=== PATIENT | female | born 2000 | race Two or more races ===

== ENCOUNTER 2024-12-27 10:22 | Emergency (ER) | payer OTHER ==
[~2024-12-27] VITALS: Ht 170.2 cm; Wt 74.8 kg
[2024-12-27 12:21] LABS: BASO % 0.5 % (0.1-1.2); EOS # 0.01 (0.04-0.54); EOS % 0.2 % (0.7-7.0); LYMPH # 0.65 (1.18-3.74); LYMPH % 10.9 % (19.3-53.1); MEAN PLATELET VOLUME 10.90 fl (9.4-12.4); MONO # 0.51 (0.24-0.82); MONO % 8.5 % (4.7-12.5); NEUT # 4.74 (1.56-6.13); NEUT % 79.2 % (34.0-71.1); RED CELL DISTRIBUTION WIDTH 13.5 % (11.6-14.4)
[2024-12-27 12:43] LABS: ALT/SGPT 40.0 U/L (12-78); AST/SGOT 28.0 U/L (15-37); BILIRUBIN TOTAL 0.48 mg/dL (0.3-1.2); BUN CREA RATIO 12.0 (7.0-25.0); CREATININE SERUM 0.5 mg/dL (0.55-1.02); GFR 154.28; GLOBULINA 3.5 G/DL (2.4-3.5); GLUCOSE FASTING 108.0 mg/dL (65-100); OSMOLALITY SERUM 274.0 MOSM/KG (275-295)
[2024-12-27 12:52] LABS: URINE APPEARANCE Clear; URINE BILIRRUBIN Negative (NEGATIVE); URINE BLOOD Negative; URINE COLOR Yellow; URINE GLUCOSE Negative (NEGATIVE); URINE KETONE Negative (NEGATIVE); URINE LEUKOCYTE Trace; URINE NITRATE Negative; URINE PROTEIN Negative (NEGATIVE); URINE UROBILINOGEN 0.2 E.U./dl
[2024-12-27 12:55] LABS: URINE BACTERIA 2395.0 uL (0.0-1933); URINE EPITHELIAL CELLS 67.0 uL (0.0-38.8); URINE RBC 42.9 uL (0.0-20.8); URINE WBC 36.4 uL (0.0-23.2)
[2024-12-27 13:07] LABS: URINE CAST 0.29 uL (0.0-1.40)
[2024-12-27 13:08] LABS: COVID-19 AG POSITIVE (NEGATIVE)
[2024-12-27] MEDS ORDERED: ACETAMINOPHEN 500 MG GEL..CAP PO ONE ×2 (13:45)
[2024-12-27] MEDS ORDERED: 0.9 % SODIUM CHLORIDE 500 ML IV ONE (14:15)
== END 2024-12-27 15:41 ==
LOC: ER 10:22
PROVIDERS: General Practice
DX: O98.512 Other viral diseases complicating pregnancy, second trimester (principal); U07.1 COVID-19; O23.42 Unspecified infection of urinary tract in pregnancy, second trimester; N39.0 Urinary tract infection, site not specified; Z3A.22 22 weeks gestation of pregnancy; Z88.0 Allergy status to penicillin; Z88.8 Allergy status to other drugs, medicaments and biological substances

== ENCOUNTER 2025-05-01 13:00 | Inpatient (IN) | payer OTHER ==
[~2025-05-01] VITALS: Ht 170.2 cm; Wt 3.6 kg
[2025-05-05 01:56] VITALS: BP 136/78
[2025-05-05] MEDS ORDERED: RINGERS SOLUTION,LACTATED 1,000 ML IV SCH (02:15)
[2025-05-05] MEDS ORDERED: CLINDAMYCIN PHOSPHATE 150 MG/ML (900mg) IV SCH (02:15)
[2025-05-05] MEDS ORDERED: OXYTOCIN 10 UNITS/ML VIAL ONE (02:17)
[2025-05-05] MEDS ORDERED: ERYTHROMYCIN BASE OPHT 1GM EACH TUBE OP ONE (02:17)
[2025-05-05 02:31] LABS: BASO % 0.4 % (0.1-1.2); EOS # 0.07 (0.04-0.54); EOS % 0.6 % (0.7-7.0); LYMPH # 2.52 (1.18-3.74); LYMPH % 22.5 % (19.3-53.1); MEAN PLATELET VOLUME 12.00 fl (9.4-12.4); MONO # 0.58 (0.24-0.82); MONO % 5.2 % (4.7-12.5); NEUT # 7.96 (1.56-6.13); NEUT % 70.9 % (34.0-71.1); RED CELL DISTRIBUTION WIDTH 13.7 % (11.6-14.4)
[2025-05-05] MEDS ORDERED: PRENATA CHEWAB1 EACH PO (02:59)
[2025-05-05 03:05] LABS: INR < 0.93
[2025-05-05 03:09] LABS: ALT/SGPT 24.0 U/L (12-78); AST/SGOT 24.0 U/L (15-37); BILIRUBIN TOTAL 0.58 mg/dL (0.3-1.2); BUN CREA RATIO 17.0 (7.0-25.0); CREATININE SERUM 0.58 mg/dL (0.55-1.02); GFR 130.0; GLOBULINA 3.2 G/DL (2.4-3.5); GLUCOSE FASTING 140.0 mg/dL (65-100); OSMOLALITY SERUM 286.0 MOSM/KG (275-295)
[2025-05-05] MEDS ORDERED: MORPHINE SULFATE 4 MG/ML VIAL IV PRN (04:00)
[2025-05-05 06:07] VITALS: BP 135/85
[2025-05-05 08:00] VITALS: BP 127/80
[2025-05-05 13:16] LABS: BASO % 0.3 % (0.1-1.2); EOS # 0.01 (0.04-0.54); EOS % 0.1 % (0.7-7.0); LYMPH # 1.98 (1.18-3.74); LYMPH % 16.5 % (19.3-53.1); MEAN PLATELET VOLUME 11.90 fl (9.4-12.4); MONO # 0.71 (0.24-0.82); MONO % 5.9 % (4.7-12.5); NEUT # 9.22 (1.56-6.13); NEUT % 76.9 % (34.0-71.1); RED CELL DISTRIBUTION WIDTH 13.7 % (11.6-14.4)
[2025-05-05 15:53] VITALS: BP 118/74
[2025-05-06] VITALS: BP 117/78
[2025-05-06 08:13] VITALS: BP 109/69
[2025-05-06 10:20] LABS: BASO % 0.3 % (0.1-1.2); EOS # 0.04 (0.04-0.54); EOS % 0.3 % (0.7-7.0); LYMPH # 2.24 (1.18-3.74); LYMPH % 17.0 % (19.3-53.1); MEAN PLATELET VOLUME 11.20 fl (9.4-12.4); MONO # 0.77 (0.24-0.82); MONO % 5.8 % (4.7-12.5); NEUT # 10.04 (1.56-6.13); NEUT % 76.3 % (34.0-71.1); RED CELL DISTRIBUTION WIDTH 14.0 % (11.6-14.4)
[2025-05-06 18:11] VITALS: BP 124/81
[2025-05-07 02:16] VITALS: BP 115/79
[2025-05-07] MEDS ORDERED: IBUPROFEN800 MG PO (07:11)
[2025-05-07 07:35] VITALS: BP 115/83; O2SAT 98
== END 2025-05-07 13:49 | disposition home or self-care (01) | DRG 788 ==
LOC: OB/GYN 05-05 02:00 → LDR 05-05 02:00 → OB/GYN 05-05 04:25 → LDR 05-11 13:00
PROVIDERS: ADMIT Specialist; ATTEND Specialist
PROC: 4A1HXCZ Monitoring of Products of Conception, Cardiac Rate, External Approach (ICD-10-PCS; 2025-05-05)
PROC: 10D00Z1 Extraction of Products of Conception, Low, Open Approach (ICD-10-PCS; principal; 2025-05-05 07:00)
DX: O45.8X3 Other premature separation of placenta, third trimester (principal); Z3A.39 39 weeks gestation of pregnancy; Z37.0 Single live birth